=== PATIENT | female | born 1985 | race Caucasian/White ===

== ENCOUNTER 2022-08-23 11:46 | Emergency (ER) | payer BC, OTHER ==
[~2022-08-23] VITALS: Ht 160 cm; Wt 108.9 kg
[~2022-08-23 11:46] MED LIST: ALAVERT PO; ALBU17AE26; LORA-258 PO; SINGULAIR PO
[2022-08-23 11:53] VITALS: BP_SYST 149
--- NOTE | 2022-08-23 12:12 | NUR ---
PT BIB , AWAKE AND ALERT AOX4. NO SOB OR DISTRESS. PT C/O PAIN TO L WRIST AFTER A FALL LAST NIGHT IN THE SHOWER. PT STATES PAIN TO BE 7/10. PT DENIES N/V. PT DENIES KO, AND OTHER INJURIES.
--- NOTE | 2022-08-23 12:14 | NUR ---
MD DR PETERSON AT BEDSIDE
[2022-08-23] MEDS ORDERED: IBUPROFEN 800 MG TABLET PO ONE (12:30)
[2022-08-23] MEDS ORDERED: HYDROcodone/ACETAMIN 10-325 MG TAB PO ONE (12:30)
[2022-08-23] MEDS ORDERED: HYDR-3917 PO (13:29)
[2022-08-23] MEDS ORDERED: IBUP-1969 PO (13:29)
--- NOTE | 2022-08-23 14:13 | NUR ---
volar splint applied to pt left anterior forearm and hand. pms present before and after splint application
--- NOTE | 2022-08-23 14:29 | NUR ---
Patient given written and verbal discharge instructions and verbalizes understanding. ER MD DR PETERSON discussed with patient the results and treatment provided. Patient in stable condition. ID arm band removed. Rx of NORCO AND MOTRIN given. Patient educated on pain management and to follow up with PMD. Pain Scale 3/10. Opportunity for questions provided and answered. Medication side effect fact sheet provided.
[2022-08-23 14:31] VITALS: BP_SYST 180
== END 2022-08-23 14:29 | disposition home or self-care (01) ==
LOC: SED 11:46
DX: S52.515A Nondisplaced fracture of left radial styloid process, initial encounter for closed fracture (principal); J45.909 Unspecified asthma, uncomplicated; Z88.1 Allergy status to other antibiotic agents; Z79.899 Other long term (current) drug therapy; W18.30XA Fall on same level, unspecified, initial encounter; Y93.89 Activity, other specified; Y92.89 Other specified places as the place of occurrence of the external cause; Y99.8 Other external cause status
CPT/HCPCS: 99283